=== PATIENT | female | born 1965 ===

== ENCOUNTER 2024-12-09 05:00 | Outpatient (RCR) | payer MEDICARE, SELFPAY | END 2025-01-08 23:59 | disposition home or self-care (01) | LOC: GPT 05:00 | PROVIDERS: Visit Provider Orthopaedic Surgery | DX: M75.102 Unspecified rotator cuff tear or rupture of left shoulder, not specified as traumatic (principal); M25.512 Pain in left shoulder; R53.1 Weakness | CPT/HCPCS: 97161 ==

== ENCOUNTER 2025-01-09 05:00 | Outpatient (RCR) | payer MEDICARE, SELFPAY | END 2025-02-08 23:59 | disposition home or self-care (01) | LOC: GPT 05:00 | PROVIDERS: Visit Provider Orthopaedic Surgery | DX: M75.102 Unspecified rotator cuff tear or rupture of left shoulder, not specified as traumatic (principal); M25.512 Pain in left shoulder; R53.1 Weakness | CPT/HCPCS: 97110; 97112; 97140 ==

== ENCOUNTER 2025-04-03 09:49 | Outpatient (RCR) | payer MEDICARE, SELFPAY | END 2025-04-10 23:59 | disposition home or self-care (01) | LOC: GPT 09:49 | PROVIDERS: Visit Provider Orthopaedic Surgery | DX: Z98.890 Other specified postprocedural states (principal) | CPT/HCPCS: 97161 ==

== ENCOUNTER 2025-04-16 12:30 | Outpatient (RCR) | payer MEDICARE, SELFPAY | END 2025-05-10 23:59 | disposition home or self-care (01) | LOC: GPT 12:30 | PROVIDERS: Visit Provider Orthopaedic Surgery | DX: Z98.890 Other specified postprocedural states (principal) | CPT/HCPCS: 97110; 97140 ==